=== PATIENT | male | born 1995 | race Caucasian/White ===

== ENCOUNTER 2023-02-09 21:22 | Emergency (ER) | payer SELFPAY ==
[2023-02-09 21:28] VITALS: BP 135/87; PULSE 72; RESP 18; TEMP 98.6; BMI 19.8
[2023-02-09] MEDS ORDERED: IBUPROFEN 600 MG TABLET (FP) PO ONE ×2 (21:57→22:12)
[2023-02-09] MEDS ORDERED: CEPHALEXIN 250 MG/5 ML ORAL SUSPENSION PO ONE (21:57)
[2023-02-09] MEDS ORDERED: CEPHALEXIN MONOHYDRATE 500 MG CAPSULE (UD) ONE (22:12)
== END 2023-02-09 22:44 | disposition home or self-care (01) ==
LOC: JERFT 21:22
DX: M54.2 Cervicalgia (principal); M25.522 Pain in left elbow; M54.6 Pain in thoracic spine; Y04.8XXA Assault by other bodily force, initial encounter
CPT/HCPCS: 99283-25